=== PATIENT | male | born 1945 | race Caucasian/White ===

== ENCOUNTER 2020-04-03 10:00 | Emergency (ER) | payer OTHER ==
[~2020-04-03] VITALS: Ht 177.8 cm; Wt 68.0 kg
[~2020-04-03 10:00] MED LIST: METF500; NAPR550 PO; PROACE100 PO; RXNAPNA550 PO; RXPROACE PO
[2020-04-03] MEDS ORDERED: CEPH500 PO ×2 (11:07→11:54)
== END 2020-04-03 12:16 | disposition home or self-care (01) ==
LOC: ER 10:00
DX: S61.112A Laceration without foreign body of left thumb with damage to nail, initial encounter (principal); E11.9 Type 2 diabetes mellitus without complications; W23.0XXA Caught, crushed, jammed, or pinched between moving objects, initial encounter
CPT/HCPCS: 73140; 99282-25